=== PATIENT | female | born 1940 | race Caucasian/White ===

== ENCOUNTER 2024-09-21 12:44 | Outpatient (CLI) | payer MEDICARE, MEDICAID, SELFPAY ==
--- NOTE | ~2024-09-21 | US_ITS ---
EXAMINATION: US carotid duplex BI DATE: 09/21/2024 13:15 INDICATION: Amaurosis fugax TECHNIQUE: Grayscale, color Doppler, and pulsed Doppler images of the cervical carotid arteries were obtained. The degree of vessel stenosis is placed in one of the following categories: normal, <50%, 5 0-69%, >=70% but less than near-occlusion, near-occlusion, or total occlusion. Note that percent sten osis relative to normal distal artery lumen diameter is indirectly measured from velocity measurement s as described by Blaze, et al. Radiology 2003; 229:340-346. COMPARISON: None. FINDINGS: Incidentally noted are solid hypoechoic wider than tall right thyroid nodules with smooth margins and without echogenic foci, the larger measuring 3.1 cm and the smaller measuring 1.1 cm in maximal diam eters. There is a similar 1.3 cm Ti rads 4 nodule in the left thyroid lobe. RIGHT: The right common carotid artery (CCA) peak systolic velocity (PSV) is 86 cm/s. The right internal car otid artery (ICA) PSV is 73 cm/s. The right ICA end-diastolic velocity (EDV) is 22 cm/s. The right IC A/CCA PSV ratio is 0.8. Grayscale and color Doppler images yield an estimate of <50% diameter reducti on from plaque in the ICA. The external carotid artery (ECA) PSV is 54 cm/s. There is antegrade flow in the right vertebral artery. LEFT: The left CCA PSV is 70 cm/s. The left ICA PSV is 89 cm/s. The left ICA EDV is 38 cm/s. The left ICA/C CA PSV ratio is 1.3. Grayscale and color Doppler images yield an estimate of <50% diameter reduction from plaque in the ICA. The ECA PSV is 68 cm/s. There is antegrade flow in the left vertebral artery. IMPRESSION: 1. <50% stenosis in the right internal carotid artery. 2. <50% stenosis in the left internal carotid artery. 3. Multinodular goiter with at least one 3.1 cm TI-RADS 4 nodules in the right thyroid lobe which jessica ts criteria for biopsy. Consider further evaluation with thyroid ultrasound for more complete evaluat ion in this location and ultrasound-guided biopsy of at least the largest right thyroid nodule. Reviewed, dictated and finalized at location B. HAND IMPRESSION: 1. <50% stenosis in the right internal carotid artery. 2. <50% stenosis in the left internal carotid artery. 3. Multinodular goiter with at least one 3.1 cm TI-RADS 4 nodules in the right thyroid lobe which meets criteria for biopsy. Consider further evaluation with thyroid ultrasound for more complete evaluation in this location and ultrasound -guided biopsy of at least the largest right thyroid nodule.
== END 2024-09-21 12:45 | disposition home or self-care (01) ==
PROVIDERS: Visit Provider Specialist
DX: I65.23 Occlusion and stenosis of bilateral carotid arteries (principal); E04.9 Nontoxic goiter, unspecified
CPT/HCPCS: 93880

== ENCOUNTER 2024-12-02 15:19 | Outpatient (CLI) | payer MEDICARE, MEDICAID, SELFPAY ==
--- NOTE | ~2024-12-02 | US_ITS ---
EXAMINATION: US thyroid DATE: 12/02/2024 15:58 INDICATION: Right thyroid nodule. TECHNIQUE: Multiple ultrasound images of the thyroid were obtained. COMPARISON: Carotid ultrasound 09/21/2024 FINDINGS: The right thyroid lobe measures 4.4 x 1.8 x 2.4 cm. The left thyroid lobe measures 3.4 x 0 0.8, 0.4 cm. The thyroid demonstrates heterogeneous echogenicity and increased vascularity. In the right thyr oid lobe, there is a 3.1 cm solid, hypoechoic, wider than tall nodule with lobulated margin and punct ate echogenic foci (TI-RADS TR5). In the left thyroid lobe, there is a 14 mm solid, hypoechoic, wider than tall nodule with smooth margin without echogenic foci (TR4). IMPRESSION: 1. Thyroid nodules. Ultrasound-guided fine-needle aspiration of the 3.1 cm right thyroid nodule is re commended. 2. Heterogeneous, hypervascular thyroid, consistent with chronic lymphocytic (Liana) thyroiditis. Reviewed, dictated and finalized at location B. [facility]ER IMPRESSION: 1. Thyroid nodules. Ultrasound-guided fine-needle aspiration of the 3.1 cm righ t thyroid nodule is recommended. 2. Heterogeneous, hypervascular thyroid, consistent with chronic lymphocytic (H ashimoto) thyroiditis.
--- OUTSIDE RECORDS SUMMARY | 2024-12-02 15:25 | XMS_ITS | Data Portability ---
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 Patient will come back in a year unless there are new symptoms. [email or web address] Not available 06/08/2020 10:37:20 06/14/2021 06/14/2021 Annual gynecological exam performed. Patient will come back in a year unless there are new symptoms. Not available 06/14/2021 11:00:47 06/25/2022 06/25/2022 Unbillable visit Medicare not indicated WWE until 2022 [email or web address] Not available 07/07/2022 13:48:45 06/17/2023 06/17/2023 Annual gynecological exam performed. Patient will come back in a year unless there are new symptoms. Not available 06/17/2023 10:43:53 Plan of Treatment Reminders Order Date Submit Date Provider Last Modified By Organization Details Last Modified Time Details Appointments None recorded. Lab vitamin D, 25-hydroxy , total, serum 2022 023 [facility] (Lab), [address] , [place], [address], 06:02:36 CBC w/ auto diff 2022 023 [facility] (Lab), [address], [place], [address], 3 06:02:34 CMP, serum or plasma 2022 023 [facility] (Lab), [address], [place], [address], 3 06:02:35 lipid panel, blood 2022 023 [facility] (Lab), [address], [place], [address], 3 06:02:35 TSH, serum or plasma 2022 023 [facility] (Lab), [address], [place], [address], 3 06:02:36 HbA1c (hemoglobi n A1c), blood 2022 023 [facility] (Lab), [address], [place], [address], 3 06:02:34 Referral None recorded. Procedures None recorded. Surgeries None recorded. Imaging MAMMO, screening, bilateral [address] [facility], [facility] [address], [address], 0 15:39:12 MAMMO, screening, bilateral [address] [facility], [address], [place], [address], 4 15:58:37 Medication Orders None recorded. Patient TargetsNo targets recorded. Patient Instructions Encounter Date Encounter Id Patient Instructions Last Modified By Organization Details Last Modified Time 06/08/2020 [id number] [email or web address] Not available 11:22:52 Reason for Referral None Reported. Problems Name Problem SNOMED Code Status Onset Date Resolution Date Notes Provider Name and Address Organization Details Recorded Time Screenin g for malignan t neoplasm of rectum Completed 201306/13/2021 Screening for malignant neoplasms of the rectum;Pr actice ID: [id number] Nelli epperson [facility] 22:14:[address] Concept Completed 201506/13/2021 Encntr for general adult medical exam w/o abnormal findings; Practice ID: [id number] Nelli epperson [facility] 22:14:[address] Concept Completed 201506/13/2021 Encntr for radiologic technologist chief exam (general) (routine) w/o abn findings; Practice ID: [id number] Nelli epperson [facility] 22:14:17 Evaluati on finding Completed 201806/13/2021 Hematuria , unspecifi ed;Practi ce ID: [id number] Nelli Sánchez [facility] 22:14:09 Microsco pic hematuri a [id number] Completed 201306/13/2021 MICROSCOP IC HEMATURIA ;Recorded Elsewhere : No Locati on: [facility] So urce: EHR Chron ic: N Practic e ID: [id number] Bill able Time: 04:03:38 PM Nelli epperson [facility] 22:14:11 Speciali zed medical examinat ion Completed 201306/13/2021 General gynecolog ical examinati on;Record ed Elsewhere : No Locati on: [facility] So urce: EHR Chron ic: N Practic e ID: [id number] Bill able Time: 02:30:00 PM Nelli Sánchez [facility] 22:14:19 Adult health examinat ion Completed 201306/13/2021 ROUTINE MEDICAL EXAM;Min rded Elsewhere : No Locati on: [facility] So urce: EHR Chron ic: N Practic e ID: [id number] Bill able Time: 02:30:00 PM Nelli [facility] 22:14:07 Problem Notes None recorded. Procedures Surgical History Date Name Laterality Status Provider Name and Address Organization Details Recorded Time 9 Date of Last Mammogram completed Mary Lester [facility] 06/17/2023 10:45:53 8 Other completed [facility] 06/01/2020 14:01:20 Other completed Nelli [facility] 06/14/2021 11:01:30 biopsy of breast completed [facility] 06/01/2020 14:00:53 Imaging Results None recorded. Procedure Notes None recorded. Medical Equipment None Reported. Allergies No known drug allergies Medications Name Sig Start Date Stop Date Status Note LastModified by Organization Details LastModified Time latanopro st 0.005 % eye drops INSTILL 1 DROP IN RIGHT EYE EVERY DAY 06/17 completed Not Available Not Available Not Available Vitamin B-1 50 mg tablet 06/17 completed Prescrib ed Elsewher e: Yes Loca tion: [facility] M odify By: elvia kay DateTime : 07/17/20 14 02:30:00 PM Not Available Not Available Not Available lutein 6 mg capsule 06/17 completed Prescrib ed Elsewher e: Yes Loca tion: [facility] M odify By: elvia kay DateTime : 07/17/20 14 02:30:00 PM Not Available Not Available Not Available dorzolami de 22.3 mg-timolo l 6.8 mg/mL eye drops INSTILL 1 DROP INTO BOTH EYES TWICE DAILY 06/17 completed Not Available Not Available Not Available ergocalci ferol (vitamin D2) 1,250 mcg (50,000 unit) capsule TAKE 1 CAPSULE BY MOUTH EVERY WEEK active Not Available Not Available No t Available Vitamin B1 06/14 completed Not Available Not Available Not Available Vitamin B6 06/14 completed Not Available Not Available Not Available Vitamin B-6 50 mg capsule 06/17 completed Prescrib ed Mayuri e: Yes [facility] By: elvia kay DateTime : 07/17/20 14 02:30:00 PM Not Available Not Available Not Available Vitals Date Recorded Body height Body mass index (BMI) Body weight Provider Name and Address Organization Details Last Updated DateTime 06/14/2021 152.4 cm 26.7 kg/m2 99159.44 g Nelli Sánchez [facility] 06/14/2021 11:01:05 Date Recorded Systolic blood pressure Diastolic blood pressure Provider Name and Address Organization Details Last Updated DateTime 06/14/2021 132 mm[Hg] 84 mm[Hg] Heather Healy, [facility]- [address], [place], [address], [facility] 06/14/2021 11:21:37 Date Recorded Body height Body mass index (BMI) Body weight Systolic blood pressure Diastolic blood pressure Provider Name and Address Organization Details Last Updated DateTime 06/08/2020 153.04 cm 26.5 kg/m2 42718.15 g 170 mm[Hg] 87 mm[Hg] Nieves Olguin [facility] 0 11:16:11 Date Recorded Body height Body mass index (BMI) Body weight Systolic blood pressure Diastolic blood pressure Provider Name and Address Organization Details Last Updated DateTime 06/17/2023 152.4 cm 24.6 kg/m2 62828.64 g 166 mm[Hg] 85 mm[Hg] Mary Lester [facility] 3 10:44:14 Social History Question Answer Notes LastModified by Organizat ion Details LastModified Time Do You Have An Advance Directive? No Information n ot available 06/14/2021 What Is Your Level Of Alcohol Consumption? None Information not available 06/14/2021 Are You Blind Or Do You Have Difficulty Seeing? Yes Information not available 06/14/2021 What Is Your Level Of Caffeine Consumption? Moderate Information not available 06/14/2021 How Much Tobacco Do You Chew? None Information not available 06/14/2021 In The 14 Days Before Symptom Onset, Have You Had Close Contact With A Laboratory-confirme d COVID-19 While That Case Was Ill? No Information n ot available 06/14/2021 In The 14 Days Before Symptom Onset, Have You Had Close Contact With A Person Who Is Under Investigation For COVID-19 While That Person Was Ill? No Information not available 06/14/2021 Have You Been To An Area Known To Be High Risk For COVID-19? No Information not available 06/14/2021 Are You Deaf Or Do You Have Serious Difficulty Hearing? No Information not available 06/17/2023 What Type Of Diet Are You Following? REGULAR Information n ot available 06/14/2021 What Is The Highest Grade Or Level Of School You Have Completed Or The Highest Degree You Have Received? [id number] Information not available 06/14/2021 What Is Your Occupation? Retired Information not available 06/14/2021 Are There Any Guns Present In Your Home? No Information not available 06/14/2021 Do You Use Your Seat Belt Or Car Seat Routinely? Yes Information not available 06/14/2021 Do You Have Smoke And Carbon Monoxide Detectors In Your Home? Yes Information not available 06/14/2021 How Much Tobacco Do You Smoke? No Information not available 06/14/2021 Do You Feel Stressed (tense, Restless, Nervous, Or Anxious, Or Unable To Sleep At Night)? [id number] Information not available 06/14/2021 Do You Use Any Illicit Or Recreational Drugs? No Information not available 06/14/2021 Do You Use Sunscreen Routinely? Yes Information not available 06/14/2021 Have You Used IV Drugs? No Information not available 06/14/2021 Sex: Unknown Functional Status Question Answer Note LastModified by Organization D etails LastModified Time Are you able to walk? YESWOREST Information not available 06/14/2021 What is your exercise level? Moderate Information not available 06/14/2021 Mental Status None recorded. Family History Relationship Description Onset Age of this Age Resolved Age Notes LastModified by Organization Details LastModified Time Father Diabetes mellitus jgumber Not available 2019 14:00:24 Brother Diabetes mellitus jgumber Not available 2019 14:00:24 Son Diabetes mellitus jgumber Not available 2019 14:00:24 Medical History No medical history recorded. Gynecological History Statement/Question Response Abnormal Pap N Date of Last Mammogram 04/05/2019 On BCP's at Conception? N N STIs/STDs N HPV Vaccine N Age at First Child 16 If Post Menopausal, Age at Menopause 57 Date of Last Colonoscopy Sexually Active? N Menses Monthly N Sexual Problems? N N Obstetrics History GPAL:G 2 P 0 0 0 0 Past Encounters Encounter ID Performer Location Encounter Start Date Encounter Closed Date Diagnosis/Indication Diagnosis SNOMED-CT Code Diagnosis ICD10 Code Diagnosis Note [id number] Heather Healy , [facility] [address] [address] 06/08/2020 10:19:52 06/08/2020 12:04:31 Gynecologic examination 03213956 Z01.419 Take Calcium with Vitamin D 12-1500mg daily. Do monthly self breast exams. It is advised to get annual flu shot in the fall and she could obtain at [facility] or [facility] take care clinic. If you haven't received the Tdap vaccine in the last 10 years you should obtain one as well. Have mammogram yearly, bone density every 2-3 years and colonoscop y every 5-10 years depending on findings and history. Engage in daily exercise of low impact aerobic exercise 45-60 minutes 4-5 times weekly. Avoid tobacco and illicit drugs as well as using moderation with alcohol intake less than 1-2 8 oz beverages daily. This lifestyle behavior pattern will lead to less health conditions and longer life span. If BMI greater than 25 weight watchers or dietary consult advised. Questions have been answered. Patient appears to understand instructio ns, but if you have any further questions call or respond to this email Normal pap/HPV hx Not SA D/C pap unless otherwise indicated per asccp Mammo ordered but states she has already completed it for this year. CBE wnl Dexa/Colon oscopy managed by PCP Screening mammography 24 057478 Z12.31 [id number] Heather Healy [facility] [address],[place] [address] 06/14/2021 10:17:35 06/14/2021 12:51:34 Gynecologic examination 26436649 Z01.419 Take Calcium with Vitamin D 12-1500mg daily. Do monthly self breast exams. It is advised to get annual flu shot in the fall and she could obtain at [facility] or [facility]. If you haven't received the Tdap vaccine in the last 10 years you should obtain one as well. Have mammogram yearly, bone density every 2-3 years and colonoscop y every 5-10 years depending on findings and history. Engage in daily exercise of low impact aerobic exercise 45-60 minutes 4-5 times weekly. Avoid tobacco and illicit drugs as well as using moderation with alcohol intake less than 1-2 8 oz beverages daily. This lifestyle behavior pattern will lead to less health conditions and longer life span. If BMI greater than 25 weight watchers or dietary consult advised. Questions have been answered. Patient appears to understand instructio ns, but if you have any further questions call or respond to this email Normal pap/HPV hx Not SA D/C pap unless otherwise indicated per asccp Mammo orderedDex a ordered CBE wnlColonos copy managed by PCP [id number] Heather Healy [facility] [address],[place] [address] 06/25/2022 16:19:39 07/07/2022 13:48:49 [id number] Heather Healy [facility] [address],[place] [address] 06/17/2023 10:36:34 06/17/2023 14:17:57 Gynecologic examination [id number] Z01.419 Take Calcium with Vitamin D 12-1500mg daily. Do monthly self breast exams. It is advised to get annual flu shot in the fall and she could obtain at [facility] or [facility]. If you haven't received the Tdap vaccine in the last 10 years you should obtain one as well. Have mammogram yearly, bone density every 2-3 years and colonoscop y every 5-10 years depending on findings and history. Engage in daily exercise of low impact aerobic exercise 45-60 minutes 4-5 times weekly. Avoid tobacco and illicit drugs as well as using moderation with alcohol intake less than 1-2 8 oz beverages daily. This lifestyle behavior pattern will lead to less health conditions and longer life span. If BMI greater than 25 weight watchers or dietary consult advised. Questions have been answered. Patient appears to understand instructio ns, but if you have any further questions call or respond to this email Normal pap/HPV hx Not SA D/C pap unless otherwise indicated per asccp Mammo orderedDex a PCP CBE wnlColonos copy managed by PCP Adult health labs ordered--i f abn will have PCP manage. Adult heal th examination [id number] Z00.00 Vitamin D deficiency 347 80834 E55.9 Screening mammography 24 241700 Z12.31 Health Concerns Section Related Observation LastModified by Organization Detai ls LastModified Time None Recorded Concern Status LastModified by Organization Details LastModified Time None Recorded Advance Directives Directive N: Payers Encounter Date Sequence Insurance Name Policy Number Policy Scott Covered Member ID Scott Member ID Guarantor Name 06/08/2020 1 [place] Kishor Alvarezian [id number] Kishor Rojodinian 06/14/2021 2 [place] Kishor Alvarezian [id number] Kishor Rojodinian 06/14/2021 1 [place] Kishor Alvarezian [id number] Kishor Behdinian 06/25/2022 2 [place] Kishor Rojodinian [id number] Kishor Rojodinian 06/25/2022 1 [place] Kishor Rojodinian [id number] Chrisoon Behdinian 06/17/2023 2 [place] Kishor Rojodinian [id number] Kishor Rojodinian 06/17/2023 1 [place] Kishor Rojodinian [id number] Kishor Rojodinian Notes Date Note Type Note Provider Name and Address Organization Details Recorded Time 06/08/2020 text/html Annual GYNReport ed bypatient.Menstrua l cycle:Normal menses Urinary symptoms:No hematuria; No incontinence Vulva:No genital lesion Vagina:Normal vaginal discharge Breast:No breast pain; No breast lump; No nipple discharge Sexual complaints:No sexual complaints; No pain during intercourse; Normal libido Menopausal Symptoms:No menopausal symptoms; Normal vaginal lubrication Psychological symptoms:No depression; No anxiety; No PMDD Preventive measures:Encourage self breast examination; Encourage regular exercise; Encourage no tobacco use; Encourage regular mammograms starting age 40; Needs to schedule mammogram; Up to date on colonoscopy screening Postmenopause Heather Healy [facility] [address], [place], [address], [facility] 06/08/2020 11:27:59 06/14/2021 text/html Annual Fundraising Coordinator Post-MenopausalRep orted bypatient.Menopaus al Symptoms:no menopausal symptoms; normal vaginal lubrication Vaginal Bleeding:history of menopause having occurred; no history of post menopausal bleeding Urinary Symptoms:no hematuria; no incontinence; no nocturia; no urinary frequency Vulva:no genital lesion; no vulvar atrophy Vagina:normal vaginal discharge; no vaginal atrophy Breast:no breast lump; no nipple discharge; no breast pain Sexual Complaints:no sexual complaints Psychological Symptoms:no depression; no anxiety Preventive Measures:encourage regular mammograms starting age 40; encourage self breast examination; encourage regular exercise; encourage no tobacco use; needs to schedule mammogram; history of recent colonoscopy; needs to schedule bone density Barrier to visit with limited iranian Heather Healy [facility] [address], [place], [address], [facility] 06/14/2021 11:24:52 06/17/2023 text/html Annual Fundraising Coordinator Post-MenopausalRep orted bypatient.Menopaus al Symptoms:no menopausal symptoms; normal vaginal lubrication Vaginal Bleeding:history of menopause having occurred; no history of post menopausal bleeding Urinary Symptoms:no hematuria; no incontinence; no nocturia; no urinary frequency Vulva:no genital lesion; no vulvar atrophy Vagina:normal vaginal discharge; no vaginal atrophy Breast:no breast lump; no nipple discharge; no breast pain Sexual Complaints:no sexual complaints Psychological Symptoms:no depression; no anxiety Preventive Measures:encourage regular mammograms starting age 40; encourage self breast examination; encourage regular exercise; encourage no tobacco use; needs to schedule mammogram; history of recent colonoscopy Heather Healy, [facility]- [address], [place], [address], [facility] 06/17/2023 14:00:25 OBGyn Episode Ob Episode Information Episode Created Date Number of Fetuses Patient Bloodtype Patient rh Status Prepregnancy Weight lbs Domestic Partner Domestic Partner Phone Father Name Billing Administrator Status 06/08/20 20 1 CLOSED Fetus Data First Name Last Name Admitted to NICU Weight (g) Sex Living Outcome Pediatric Complications Fetus ID Race Codes Race Delivery Type [id number] Vaginal Delivery Jonny Calculation Initial Jonny Date Initial Exam Date Initial Exam Provider Initial Ultrasound Date Last Menstrual Period Date Ultra Sound Weeks Gestation 0 Eighteen To Twenty Week Jonny Update Ultra Sound Date Fundal Height At Umbil Quickening Date Ultra Sound Latest Weeks Gestation Final Jonny Confirmed By Final Jonny Confirmed Date Final Jonny Date Ultra Sound Latest Days Gestation 0 0 Menstrual History Last Menstrual Date Menses Monthly On Bcp Conception Prior Menses Frequency Hcg Plus Date Menarche Onset Age Delivery Information Delivery Date Delivery Type Labor Anesthesia Weeks Gestation Incision Type Labor Labor Length Hrs Delivered By Post Complications Tubal Sterilization Discharge Date Comments 7 Discharge Information Feeding Method Contraceptive Method Maternal HG B and HCT Levels Ob Episode Information Episode Created Date Number of Fetuses Patient Bloodtype Patient rh Status Prepregnancy Weight lbs Domestic Partner Domestic Partner Phone Father Name Billing Administrator Status 06/08/20 20 1 CLOSED Fetus Data First Name Last Name Admitted to NICU Weight (g) Sex Living Outcome Pediatric Complications Fetus ID Race Codes Race Delivery Type [id number] Vaginal Delivery Jonny Calculation Initial Jonny Date Initial Exam Date Initial Exam Provider Initial Ultrasound Date Last Menstrual Period Date Ultra Sound Weeks Gestation 0 Eighteen To Twenty Week Jonny Update Ultra Sound Date Fundal Height At Umbil Quickening Date Ultra Sound Latest Weeks Gestation Final Jonny Confirmed By Final Jonny Confirmed Date Final Jonny Date Ultra Sound Latest Days Gestation 0 0 Menstrual History Last Menstrual Date Menses Monthly On Bcp Conception Prior Menses Frequency Hcg Plus Date Menarche Onset Age Delivery Information Delivery Date Delivery Type Labor Anesthesia Weeks Gestation Incision Type Labor Labor Length Hrs Delivered By Post Complications Tubal Sterilization Discharge Date Comments 2 Discharge Information Feeding Method Contraceptive Method Maternal HG B and HCT Levels
--- OUTSIDE RECORDS SUMMARY | 2024-12-02 15:25 | XMS_ITS | Clinical Summary ---
Author Organization [facility] Address [address] [place] [address]. [place], [place] [id number] [place] [id number] Care Team Providers Care Orthopedics Nurse Name Role Phone Unavailable Primary Care Provider Unavailabl e Social History Tobacco Use Types Packs/Day Years Used Date Smoking Tobacco: Never Assessed Comments Unknown Sex and Gender Information Value Date Recorded Sex Assigned at Not on file Legal Sex Female 7:50 AM CDT Gender Identity Not on file Sexual Orientation Not on file Plan of Treatment Health Maintenance Due Date Last Done Comments DTaP, Tdap and Td Vaccines ( 1 - Tdap) 1958 Zoster Vaccines (1 of 2) 1989 Dexa Scan (General) 2004 Pneumococcal Vaccine: 65+ Ye ars (1 of 1 - PCV) 2004 RSV Immunization or 60+ Years (1 - 1-dose 75+ series) 2014 COVID-19 Vaccine (2023-2 5 season) 2024 Influenza Adult (#1) 2024 Meningococcal Vaccine Aged Out No hima alex eligible based on patient's age to complete this topic RSV Immunizations Under 20 Months Aged Out No longer eligible based on patient's age to complete this topic
== END 2024-12-02 15:20 | disposition home or self-care (01) ==
LOC: ANHIMG 15:20
PROVIDERS: Visit Provider Family Medicine
DX: E04.2 Nontoxic multinodular goiter (principal)
CPT/HCPCS: 76536

== ENCOUNTER 2025-01-23 10:30 | Outpatient (CLI) | payer MEDICARE, MEDICAID, SELFPAY ==
--- NOTE | ~2025-01-23 | MR_ITS ---
EXAMINATION: MR brain/brain stem wo/w con DATE: 01/23/2025 11:09 INDICATION: Amaurosis fugax TECHNIQUE: Magnetic resonance imaging (MRI) of the brain and brainstem was performed without and with 10 mL ProHance intravenous contrast. Sequences included sagittal and axial T1-weighted SE, axial dif fusion-weighted FS SE, axial T2*-weighted GRE, axial T2-weighted FLAIR, and axial T2-weighted FSE. Po stcontrast axial and coronal T1-weighted SE was obtained. Apparent diffusion coefficient (ADC) maps w ere created. COMPARISON: None. FINDINGS: There are no areas of restricted diffusion to suggest acute infarction. No intracranial hemorrhage. T here is a 1.8 x 1.8 x 1.1 cm dural based enhancing mass overlying the right frontal lobe which appear s to be fed by meningeal vessels consistent with a meningioma. No abnormal intra-axial masses or othe r abnormal enhancing lesions identified. There are scattered areas of nonspecific increased T2-weight ed signal intensity in the cerebral white matter, predominantly involving the deep and periventricula r white matter. There are no intraparenchymal signal abnormalities seen on the other pulse sequences. The ventricles are symmetric and normal in size. There are no abnormal extra-axial fluid collections . Flow voids are seen in the cerebral arteries on the T2-weighted sequences consistent with their exp ected patency. Right maxillary sinus is small. Changes of bilateral intraocular lens replacement. Vi sualized orbits and soft tissues are otherwise unremarkable. IMPRESSION: 1. Normal aging brain with 1.8 cm extra-axial dural based enhancing mass overlying the right frontal lobe most consistent with a meningioma. No acute intracranial process. Reviewed, dictated and finalized at location A. IMPRESSION: 1. Normal aging brain with 1.8 cm extra-axial dural based enhancing mass overly ing the right frontal lobe most consistent with a meningioma. No acute intracra nial process.
== END 2025-01-23 10:31 | disposition home or self-care (01) ==
LOC: MICIMG 10:31
PROVIDERS: PCP Family Medicine; Visit Provider Family Medicine
DX: D32.0 Benign neoplasm of cerebral meninges (principal); G45.3 Amaurosis fugax
CPT/HCPCS: 70553; A9579